=== PATIENT | male | born 1945 | race Caucasian/White ===

== ENCOUNTER 2019-05-15 15:49 | Emergency (ER) | payer MEDICARE, MEDICAID ==
[~2019-05-15] VITALS: Ht 177.8 cm; Wt 96.5 kg
[2019-05-15] MEDS ORDERED: normal saline 1000ML IV soln IV ONE (17:05)
[2019-05-15] MEDS ORDERED: LORazepam 2 mg/ml vial IV ONE (17:05)
[2019-05-15] MEDS ORDERED: metoclopramide 5 mg/ml inj IV ONE (17:05)
--- NOTE | 2019-05-15 17:52 | NUR ---
BACK FROM CT
[2019-05-15 18:14] LABS: BASOPHILS # (AUTO) 0.1 X10'3 (0-0.2); BASOPHILS % (AUTO) 0.8 % (0-1); EOSINOPHILS # (AUTO) 0.1 X10'3 (0-0.9); EOSINOPHILS % (AUTO) 1.8 % (0-6); HEMATOCRIT 28.3 % (42.0-52.0); LYMPHOCYTES # (AUTO) 0.8 X10'3 (1.1-4.8); LYMPHOCYTES % (AUTO) 12.6 % (21-51); MEAN CORPUSCULAR HEMOGLOBIN 26.6 PG (27.0-31.0); MEAN CORPUSCULAR HGB CONC 31.7 g/dL (33.0-36.5); MEAN CORPUSCULAR VOLUME 84.1 FL (78-98); MEAN PLATELET VOLUME 8.7 FL (7.4-10.4); MONOCYTES % (AUTO) 17.1 % (2-12); NEUTROPHILS # (AUTO) 4.1 X10'3 (1.8-7.7); NEUTROPHILS % (AUTO) 67.7 % (42-75); PLATELET COUNT 325 X10'3 (140-440); RED BLOOD COUNT 3.37 X10'6 (4.70-6.10); RED CELL DISTRIBUTION WIDTH 22.7 % (11.5-14.5)
[2019-05-15 18:34] LABS: ALANINE AMINOTRANSFERASE 25 U/L (12-78); ALBUMIN 2.2 G/DL (3.4-5.0); ALBUMIN/GLOBULIN RATIO 0.4 (1.1-1.5); ALKALINE PHOSPHATASE 93 IU/L (46-116); ANION GAP 7 (8-16); ASPARTATE AMINO TRANSFERASE 28 U/L (10-37); BILIRUBIN,TOTAL 0.3 MG/DL (0.1-1.0); BLOOD UREA NITROGEN 21 MG/DL (7-18); BUN/CREATININE RATIO 15.3 (5.4-32.0); CHLORIDE 101 MMOL/L (99-107); CREATININE 1.37 MG/DL (0.60-1.10); GLUCOSE 110 MG/DL (70-104); POTASSIUM 4.1 MMOL/L (3.5-5.1); SODIUM 137 MMOL/L (135-145); TOTAL CARBON DIOXIDE 28.7 MMOL/L (24-32); TOTAL PROTEIN 8.1 G/DL (6.4-8.2); eGFR 51 ML/MIN
[2019-05-15 19:11] VITALS: BP 129/58
[2019-05-15 20:39] LABS: PLATELET ESTIMATE NORMAL; TOTAL CELLS COUNTED 100
[2019-05-15 20:40] LABS: ANISOCYTOSIS 3+; HYPOCHROMASIA 1+; POLYCHROMASIA FEW; STOMATOCYTES FEW
[2019-05-15 20:41] LABS: LARGE PLATELETS FEW
--- NOTE | 2019-05-15 20:57 | NUR ---
TELEPHONE REPORT GIVEN TO CHARGE NURSE JACY AT [facility] REGARDING RESULTS OF CT SCAN AND TREATMENT OF PT IN ED. JACY MADE AWARE THAT PT D/C READY, AWAITING TRANSPORT VIA [facility] WHEN UNIT AVAILABLE.
== END 2019-05-15 23:56 | disposition home or self-care (01) ==
LOC: ER 15:49
DX: N13.2 Hydronephrosis with renal and ureteral calculous obstruction (principal); R63.4 Abnormal weight loss; R63.0 Anorexia; R14.0 Abdominal distension (gaseous); E11.9 Type 2 diabetes mellitus without complications; I48.91 Unspecified atrial fibrillation; I25.10 Atherosclerotic heart disease of native coronary artery without angina pectoris; J44.9 Chronic obstructive pulmonary disease, unspecified; N18.9 Chronic kidney disease, unspecified
CPT/HCPCS: 36415; 71045; 74176; 80053; 83605; 84145; 85025; 85610; 87040; 93005; 96374; 96375; 99284; J2060; J2765; J7030